=== PATIENT | female | born 1970 | race African-American/Black ===

== ENCOUNTER 2017-03-05 10:47 | Inpatient (IN) | payer BC ==
--- NOTE | ~2017-03-05 | HP ---
History And Physical [place] [id number] [facility] [place]. [address] NAME: TRACY CARPENTER : 72 STATUS : ADM IN [facility]#: [id number] AGE: 46 ADM/REG DATE : 03/05/17 MR#: [id number] REPORT SERV DATE: 03/05/17 DICTATED BY: MC NEAL DATE: 03/05/17 REPORT STATUS : Draft TRANSCRIBED BY: KEIRA DATE: 03/05/17 DATE OF ADMISSION: 03/05/2017 REASON FOR ADMISSION: Acute stroke. CHIEF COMPLAINT: "Numbness on the right side of my body." HISTORY OF PRESENT ILLNESS: Mrs. Carpenter is a 46-year-old female with a past medical history of underlying hypertension, history of a previous stroke, obesity, and diabetes. She woke up this morning and noted to have a very bad headache. She has had headaches in the past. However, at this moment in time, her blood pressure was greater than 200. The patient states that she has been fighting hypertension for many years. She has been on medications such as Tekturna. However, the patient states that she has recently been changed to losartan and also amlodipine. The patient states she has never seen a networking specialist or had a secondary workup. She does not exercise, but states that she does not take much salt intake. She had an acute onset of facial burning on the right side with the right arm numbness and her right leg lateral side had numbness and tingling with a burning sensation. She presented herself to the emergency room and was diagnosed with acute stroke. She was given tPA this morning at around 10:15 in the morning. The patient has had symptoms which are now resolving. Otherwise, no further complaints. PAST MEDICAL HISTORY: Hypertension, diabetes, obesity, history of previous stroke, and migraines. MEDICATIONS: Home medications include Norvasc 5 mg daily, Lasix 20 mg daily, Neurontin 600 mg twice daily, hydrochlorothiazide 25 mg once daily, and Cozaar 50 mg at bedtime. ALLERGIES: NO KNOWN DRUG ALLERGIES. SOCIAL HISTORY: The patient currently works in a daycare center. No smoking, alcohol, or illicit drug use according to the patient. FAMILY HISTORY: Father's family has hypertension. Nobody has a family history of kidney disease. REVIEW OF SYSTEMS: All pertinent review of systems were reviewed and are otherwise negative. PHYSICAL EXAMINATION: VITAL SIGNS: Currently afebrile, heart rate 70, respiratory rate 18, blood pressure currently around 140s to 160s systolic, and oxygen saturation 98% on room air. GENERAL: The patient is alert and oriented, in no acute distress. HEENT: Neck is supple, no lymphadenopathy. No carotid bruits. PULMONARY: Lungs are clear to auscultation bilaterally. CARDIAC: Regular rate, no murmurs, normal placed PMI. ABDOMEN: Soft, nontender, nondistended. History And Physical [address] [address] NAME: TRACY CARPENTER : 72 STATUS : ADM IN [facility]#: [id number] AGE: 46 ADM/REG DATE : 03/05/17 MR#: [id number] REPORT SERV DATE: 03/05/17 DICTATED BY: MC NEAL DATE: 03/05/17 REPORT STATUS : Draft TRANSCRIBED BY: KEIRA DATE: 03/05/17 EXTREMITIES: The patient has sensitive skin to the right leg. She is able to move all extremities. There is 4/5 muscle strength in the right upper extremity, but otherwise normal. NEUROLOGIC: Mental status is normal. Cranial nerve exam is normal. LABORATORY EXAMINATION: No leukocytosis. INR 1.0. Glucose 124. LDL 136, HDL 38, triglycerides 271. Troponin negative. TSH normal. IMAGING DATA: CT scan of the brain shows no acute intracranial abnormalities, chronic mild microvascular deep white matter ischemic changes. Chest x-ray is clear. CT scan of the neck shows no significant stenosis or occlusion. ASSESSMENT AND PLAN: 1. Mrs. Carpenter is a 46-year-old female with a past medical history noted above, who is admitted for acute stroke, status post tPA. We will continue with stroke protocol. 2. Hypertension. Currently blood pressure is around 130 systolic. We will slowly add her antihypertensive medications. The patient needs a secondary workup for which we will start. 3. Diet: We will advance diet as tolerated. Check swallow per stroke protocol. 4. Code status: The patient is currently full code. HFQ/MODL Mc Neal MD / [id number] CC: Jean Carlos Shah M.D. UNKNOWN
--- NOTE | ~2017-03-05 | DS ---
Discharge Summary [facility] [address] [place]. [address] NAME: TRACY CARPENTER : 72 STATUS : DIS IN PAT#: [id number] AGE: 46 ADM/REG DATE : 03/05/17 MR#: [id number] REPORT SERV DATE: 03/10/17 DICTATED BY: ISRAEL GONZALES DATE: 03/09/17 REPORT STATUS : Draft TRANSCRIBED BY: KEIRA DATE: 03/09/17 ADMISSION DATE: 03/05/2017 DISCHARGE DATE: 03/09/2017 PROCEDURES DONE: 1. 03/05/2017, CT of the head without contrast: No acute intracranial abnormality appreciated at this time. Findings compatible with mild chronic microvascular deep white matter ischemic changes, particularly in the frontal regions bilaterally. 2. 03/05/2017, CT of the brain without contrast: Negative CT of the brain. 3. 03/05/2017, chest x-ray: No acute cardiopulmonary disease seen. 4. 03/05/2017, CTA of the neck: No significant stenosis or occlusion is seen involving the cervical portion of the carotid and vertebral arteries. Proximal right common carotid artery is not optimally evaluated due to some artifact and adjacent venous contrast. No large vessel occlusions or stenosis is appreciated involving the intracranial arterial circulation. The intracranial portions of the internal carotid arteries are not optimally evaluated at the skull base as described. However, no stenosis or occlusion is suspected. Findings compatible with minimal chronic deep white matter ischemic change involving the frontal lobes. 5. On 03/05/2016, MRI of the brain without contrast: Mild deep white matter chronic microvascular ischemic changes. No acute CVA or other acute intracranial pathology identified. 6. 03/08/2017, MRI of the head without contrast: No acute infarct, hemorrhage, or subdural fluid collections. Minimal nonspecific white matter gliosis. The findings could be related to prior head trauma or migraine headaches. CONSULT: Dr. Lance for Neurology. REASON FOR ADMISSION: Numbness on the right side of the body. HISTORY OF PRESENT ILLNESS: A 46-year-old black female with past medical history of hypertension, questionable diabetes type 2, history of CVA, obesity, migraines, presenting with numbness on the right side of the body, unknown duration. The patient was admitted. The patient initially had a right-sided numbness of her body, which was associated with elevated blood pressure with systolic greater than 200. The patient was seen in the ER due to the patient's history of CVA, the patient was then worked up and was given tPA at the time of presentation. The patient was sent in to the Medical Intensive Care Unit for observation status post tPA. The patient did well without any complications. However, the patient started having headaches, which required a repeat MRI of the head, which was all within normal limits. The patient advised to follow up with Neurology within two weeks' time. In addition, the patient advised to comply with all medications and instructions. DISPOSITION: The patient feels fine, no complaints. ACTIVITY: As tolerated. DIET: Cardiac. Discharge Summary [place] [id number] [place]. [address] NAME: TRACY CARPENTER : 72 STATUS : DIS IN PAT#: [id number] AGE: 46 ADM/REG DATE : 03/05/17 MR#: [id number] REPORT SERV DATE: 03/10/17 DICTATED BY: ISRAEL GONZALES DATE: 03/09/17 REPORT STATUS : Draft TRANSCRIBED BY: KEIRA DATE: 03/09/17 INSTRUCTIONS UPON DISCHARGE: 1. The patient is to follow up with me within one to two weeks' time. 2. The patient is to follow up with primary care physician within one to two weeks' time. MEDICATION UPON DISCHARGE: 1. Amlodipine 5 mg p.o. daily. 2. Aspirin 325 mg daily. 3. Lipitor 80 mg p.o. at bedtime. 4. Lasix 20 mg daily. 5. Gabapentin 600 mg b.i.d. 6. Hydrochlorothiazide 25 mg p.o. daily. 7. Cozaar 50 mg p.o. at bedtime. DIAGNOSES UPON DISCHARGE: 1. Right-sided numbness secondary to cerebrovascular accident, status post tPA. 2. History of cerebrovascular accident. 3. Obesity. 4. Diabetes type 2. 5. Hypertension. BRENTON/KEIRA Irsael Gonzales MD / [id number] CC: MD Kiara De Oliveira, MARY
--- NOTE | ~2017-03-05 | CN ---
Consultation Report [facility] [address] [place]. [address] NAME: TRACY CARPENTER : 72 STATUS : ADM IN PAT#: [id number] AGE: 46 ADM/REG DATE : 03/05/17 MR#: [id number] REPORT SERV DATE: 03/05/17 DICTATED BY: DATE: REPORT STATUS : Draft TRANSCRIBED BY: MODL DATE: 03/05/17 NEUROLOGY CONSULTATION DATE OF CONSULTATION: 03/05/2017 REASON FOR CONSULT: Right paresthesia, concern for possible acute stroke. HISTORY OF PRESENT ILLNESS: This is a 46-year-old female, who presented to [facility] on 03/05/2017, secondary to acute onset of paresthesia which the patient reports symptoms started at 0830 hours. On the day of evaluation, the patient was noted to have severe headache with numbness and tingling on the right side, as well as paraesthesia sensation with the symptom remains stable since onset. No significant changes were otherwise noted. The patient denies any dysarthria and denies weakness. The patient does have a history of previous stroke resulting in right hemiparesis and at baseline, does not taking any aspirin, Plavix, or blood thinner. The patient reports compliance with medication and baseline, takes hypertensive medication, as well as Neurontin. The patient denies any recent illness, fever, chills, nausea, vomiting, chest pain, shortness of breath, and denies any other complaints. PAST MEDICAL HISTORY: Significant for history of stroke, as well as hypertension. FAMILY HISTORY: Significant for cancer, as well as a heart disease. SOCIAL HISTORY: Denies tobacco, alcohol, or recreational drug usage. ALLERGIES: THE PATIENT WAS NOTED TO HAVE NO KNOWN DRUG ALLERGIES AT THE TIME OF EVALUATION. HOME MEDICATIONS: Consist of hypertensive medication. Denies aspirin, Plavix, or blood thinner usage. REVIEW OF SYSTEMS: Negative except for those mentioned in the HPI. PHYSICAL EXAMINATION: VITAL SIGNS: The patient on ER presentation was noted to have vital signs with a T-max of 98.6, heart rate of 81, respirations of 14, and blood pressure was 198/96. At the time of the tPA administration, the patient was noted to have systolic blood pressure of 160s. GENERAL: The patient is well developed, well nourished, in no acute distress. CARDIOVASCULAR: Regular rate and rhythm. No carotid bruits were otherwise auscultated. PULMONARY: Clear to auscultation bilaterally. NEUROLOGICAL: The patient was noted to be alert, oriented to person, place, year, and month. Follows simple and two-step commands. No dysarthria or aphasia was otherwise noted. Intact registration and recall. Cranial nerves II through XII: Pupils equal, round, and reactive to light. Extraocular eye movement was noted to be intact with intact blink to threat response, was noted to have paraesthesia at the time of evaluation to the right face Consultation Report [facility] [address] [place]. [address] NAME: TRACY CARPENTER : 72 STATUS : ADM IN PAT#: [id number] AGE: 46 ADM/REG DATE : 03/05/17 MR#: [id number] REPORT SERV DATE: 03/05/17 DICTATED BY: DATE: REPORT STATUS : Draft TRANSCRIBED BY: MODL DATE: 03/05/17 cranial nerve V1, V2, and V3 distribution. The patient noted to have decreased nasolabial fold on the right and midline tongue. Normal palatal movement. Normal hearing. The patient was noted to have mild weakness in the right lower extremity, as well as right upper extremity and paresthesia at the time of evaluation. Deep tendon reflex was noted to be 3+ in the left upper extremity, 2+ in the right upper extremity. The patient demonstrated 5/5 left upper extremity and lower extremity strength with the patient noted to have paresthesia in the right upper and right lower extremity at the time of evaluation. Normal finger-to- nose examination without ataxia. Gait was not evaluated secondary to acute symptoms. LABORATORY STUDIES: Demonstrated sodium 141, potassium 3.6, chloride 104, bicarb 29, BUN of 11, creatinine of 0.68, glucose of 124, calcium of 8.5. White blood cell count of 6.3, hemoglobin of 13.6, hematocrit of 40.6, and platelet count of 316. CT scan of the brain otherwise demonstrated no acute process with CT angiogram demonstrated no clear possible thrombus. IMPRESSION: 1. Headache. 2. Right-sided paresthesia. Time of onset was 0830 hours with NIH stroke scale of 3. TPA was given. We will start the patient on Lipitor 80 mg p.o. at bedtime. We will admit to ICU for monitoring as per protocol. We will perform stroke workup, as well as provide the patient with Depakote 125 mg IV b.i.d. for headache. RECOMMENDATIONS: 1. Admit to ICU. 2. MRI of the brain. 3. Echocardiogram with bubble study. 4. Lipitor 80 mg p.o. at bedtime. 5. PT/OT. 6. Depakote 125 mg IV b.i.d. for headache. 7. Fasting lipid panel and hemoglobin A1c. [facility]/MODL Jose Lance MD / [id number] CC: Jean Carlos Shah M.D.
[2017-03-05 10:46] LABS: BASOPHILS 0.2 %; BASOPHILS ABSOLUTE 0.01 10/3/uL (0.0-0.16); EOSINOPHILS 0.6 %; EOSINOPHILS ABSOLUTE 0.04 10/3/uL (0.0-0.53); HEMATOCRIT 40.6 % (36.0-48.0); HEMOGLOBIN 13.6 g/dL (12.0-16.0); IMMATURE GRANULOCYTES 0.5 %; IMMATURE GRANULOCYTES ABSOLUTE 0.03 10/3/uL (0.0-0.11); LYMPHOCYTES 45.8 %; LYMPHOCYTES ABSOLUTE 2.86 10/3/uL (0.67-4.30); MANUAL DIFF NO %; MEAN CORPUS HGB CONC 33.5 g/dL (32.0-36.0); MEAN CORPUSCULAR HEMOGLOB 28.6 pg (26.0-34.0); MEAN CORPUSCULAR VOLUME 85.3 fL (80-100); MEAN PLATELET VOLUME 9.3 fL (9.2-13.0); MONOCYTES 6.9 %; MONOCYTES ABSOLUTE 0.43 10/3/uL (0.21-1.20); NEUTROPHILS ABSOLUTE 2.88 10/3/uL (2.02-8.40); PLATELET COUNT 316 10/3/uL (150-400); RBC DISTRIBUTION WIDTH 14.2 % (12.0-16.0); RED CELL COUNT 4.76 10/6/uL (4.0-5.6); WHITE BLOOD CELLS 6.3 10/3/uL (4.5-10.5)
[~2017-03-05 10:47] MED LIST: FARXIGA5 PO; LORT7 PO; NORCO1 TA2 PO; OSENI; TEKTURNA HCT1 TA2 PO; VALTREX1 GM PO; ZESTORETIC1 TAB PO
[2017-03-05 10:53] LABS: PARTIAL THROMBO TIME 28.2 SEC (22.5-37.2); PROTIME (NOT ORD) 13.4 SEC (12.0-14.5)
[2017-03-05 11:02] LABS: A/G RATIO 0.9 (0.7-1.9); ALBUMIN 3.7 G/DL (3.5-5.0); ALKALINE PHOSPHATASE 117 U/L (45-117); BUN (BLOOD UREA NITROGEN) 11 MG/DL (6-23); CALCIUM, SERUM 8.5 MG/DL (8.5-10.4); CHLORIDE, SERUM 104 MMOL/L (96-112); CO2 (CARBON DIOXIDE) 29 MMOL/L (24-34); CREATININE 0.68 MG/DL (0.55-1.02); GFR AFRICAN AMERICAN 122 ML/MIN (>=60); GFR NON AFRICAN AMERICAN 106 ML/MIN (>=60); GLUCOSE, SERUM 124 MG/DL (60-99); POTASSIUM, SERUM 3.6 MMOL/L (3.5-5.3); SGOT(AST) 15 U/L (5-40); SGPT(ALT) 25 U/L (5-65); SODIUM, SERUM 141 MMOL/L (135-148); TOTAL BILIRUBIN 0.3 MG/DL (0-1.2); TOTAL PROTEIN 7.7 G/DL (6.0-8.5); TROPONIN I <0.02 NG/ML (<0.05)
[2017-03-05] MEDS ORDERED: COZ50 PO (11:52)
[2017-03-05] MEDS ORDERED: NEUR600 PO (11:52)
[2017-03-05] MEDS ORDERED: L20 PO (11:53)
[2017-03-05] MEDS ORDERED: HYDROCHLOROT25 MG PO (11:53)
[2017-03-05] MEDS ORDERED: NORV5 PO (11:53)
[2017-03-05 14:21] LABS: HEMATOCRIT 41.3 % (36.0-48.0); HEMOGLOBIN 13.8 g/dL (12.0-16.0)
[2017-03-05 15:02] LABS: HDL CHOLESTEROL 38 MG/DL (> 49); TRIGLYCERIDE 271 MG/DL (< 150)
[2017-03-05 15:06] LABS: CHOLESTEROL 228 MG/DL (< 200); FOLATE 8.9 NG/ML (>5.2); LDL CHOLESTEROL 136 MG/DL (< 130); NON-HDL CHOLESTEROL 190 MG/DL (< 160)
[2017-03-05 19:48] LABS: CPK (IF ELEVATED MB BANDS) 108 U/L (0-200); TROPONIN I <0.02 NG/ML (<0.05)
[2017-03-06 02:33] LABS: BASOPHILS 0.3 %; BASOPHILS ABSOLUTE 0.02 10/3/uL (0.0-0.16); EOSINOPHILS 1.2 %; EOSINOPHILS ABSOLUTE 0.09 10/3/uL (0.0-0.53); HEMATOCRIT 37.8 % (36.0-48.0); HEMOGLOBIN 12.6 g/dL (12.0-16.0); IMMATURE GRANULOCYTES 0.4 %; IMMATURE GRANULOCYTES ABSOLUTE 0.03 10/3/uL (0.0-0.11); LYMPHOCYTES 41.8 %; LYMPHOCYTES ABSOLUTE 3.12 10/3/uL (0.67-4.30); MEAN CORPUS HGB CONC 33.3 g/dL (32.0-36.0); MEAN CORPUSCULAR HEMOGLOB 28.4 pg (26.0-34.0); MEAN CORPUSCULAR VOLUME 85.1 fL (80-100); MEAN PLATELET VOLUME 9.2 fL (9.2-13.0); MONOCYTES 7.9 %; MONOCYTES ABSOLUTE 0.59 10/3/uL (0.21-1.20); NEUTROPHILS 48.4 %; NEUTROPHILS ABSOLUTE 3.61 10/3/uL (2.02-8.40); PLATELET COUNT 332 10/3/uL (150-400); RBC DISTRIBUTION WIDTH 14.3 % (12.0-16.0); RED CELL COUNT 4.44 10/6/uL (4.0-5.6); WHITE BLOOD CELLS 7.5 10/3/uL (4.5-10.5)
[2017-03-06 02:39] LABS: MANUAL DIFF NO %
[2017-03-06 02:42] LABS: BUN (BLOOD UREA NITROGEN) 11 MG/DL (6-23); C-REACTIVE PROTEIN 17.6 MG/L (<8.0); CALCIUM, SERUM 8.6 MG/DL (8.5-10.4); CHLORIDE, SERUM 107 MMOL/L (96-112); CO2 (CARBON DIOXIDE) 27 MMOL/L (24-34); CPK (IF ELEVATED MB BANDS) 94 U/L (0-200); CREATININE 0.67 MG/DL (0.55-1.02); GFR AFRICAN AMERICAN 123 ML/MIN (>=60); GFR NON AFRICAN AMERICAN 106 ML/MIN (>=60); GLUCOSE, SERUM 106 MG/DL (60-99); POTASSIUM, SERUM 3.7 MMOL/L (3.5-5.3); SODIUM, SERUM 142 MMOL/L (135-148); TROPONIN I <0.02 NG/ML (<0.05)
[2017-03-06 03:30] LABS: SED RATE 11 MM/HR (0-20)
[2017-03-06 10:39] LABS: ASCORBIC ACID (UR NOT ORDER) NEG (NEG); BILIRUBIN, URINE NEGATIVE (NEG); KETONE, URINE NEGATIVE (NEG); LEUKOCYTE ESTERASE(NOT OR NEG (NEG); WBC (NOT ORDERED) (RFLEX) < 1 (0-5)
[2017-03-06 15:00] LABS: BENZODIAZEPINES (NOT ORD) NEG (NEG); COCAINE (NOT ORDERED) NEG (NEG); PHENCYCLIDINE(PCP) NEG (NEG)
[2017-03-06 15:01] LABS: AMPHETAMINES (NOT ORD) NEG (NEG); BARBITURATES (NOT ORDERED NEG (NEG); CANNABINOIDS (THC) NEG (NEG); OPIATES NEG (NEG); TRICYCLICS NEG (NEG)
[2017-03-06 20:44] LABS: T.V. 24HR UR (NOT ORD) 1575 ML (600-1600)
[2017-03-06 21:01] LABS: CREAT 24HR UR (NOT ORDER) 1.21 G/T VOL (0.60-1.80); CREATININE, UR 76.8 MG/DL; T.P. URINE (NOT ORDER RAN 5.2 MG/DL; T.P.24HR UR (NOT ORDER) 82 MG/24HR (40-150); URIC A 24HR UR (NOT ORDER 0.42 GM/24HR (0.3-1.0); URIC ACID URINE 27 MG/DL
[2017-03-07 11:02] LABS: CALC 24HR UR (NOT ORDER) 0.18 GM/24HR (0.042-0.353)
[2017-03-08 05:31] LABS: BASOPHILS 0.2 %; BASOPHILS ABSOLUTE 0.01 10/3/uL (0.0-0.16); EOSINOPHILS 0.9 %; EOSINOPHILS ABSOLUTE 0.06 10/3/uL (0.0-0.53); HEMOGLOBIN 12.5 g/dL (12.0-16.0); IMMATURE GRANULOCYTES 0.5 %; IMMATURE GRANULOCYTES ABSOLUTE 0.03 10/3/uL (0.0-0.11); LYMPHOCYTES 49.5 %; MEAN CORPUS HGB CONC 32.9 g/dL (32.0-36.0); MEAN CORPUSCULAR HEMOGLOB 28.1 pg (26.0-34.0); MEAN CORPUSCULAR VOLUME 85.4 fL (80-100); MEAN PLATELET VOLUME 9.3 fL (9.2-13.0); NEUTROPHILS 39.9 %; NEUTROPHILS ABSOLUTE 2.66 10/3/uL (2.02-8.40); PLATELET COUNT 328 10/3/uL (150-400); RBC DISTRIBUTION WIDTH 14.1 % (12.0-16.0); RED CELL COUNT 4.45 10/6/uL (4.0-5.6); WHITE BLOOD CELLS 6.7 10/3/uL (4.5-10.5)
[2017-03-08 05:42] LABS: MANUAL DIFF NO %
[2017-03-08 05:53] LABS: A/G RATIO 0.9 (0.7-1.9); ALBUMIN 3.2 G/DL (3.5-5.0); CALCIUM, SERUM 8.5 MG/DL (8.5-10.4); CHLORIDE, SERUM 104 MMOL/L (96-112); CO2 (CARBON DIOXIDE) 26 MMOL/L (24-34); CREATININE 0.66 MG/DL (0.55-1.02); GFR AFRICAN AMERICAN 124 ML/MIN (>=60); GFR NON AFRICAN AMERICAN 107 ML/MIN (>=60); GLOBULIN 3.4 G/DL (2.5-4.1); GLUCOSE, SERUM 110 MG/DL (60-99); INTERNATIONAL NORMAL RATI 1.1 UNITS (-); PHOSPHORUS, SERUM 4.1 MG/DL (2.5-4.5); POTASSIUM, SERUM 3.4 MMOL/L (3.5-5.3); PROTIME (NOT ORD) 14.5 SEC (12.0-14.5); SGOT(AST) 19 U/L (5-40); SGPT(ALT) 18 U/L (5-65); SODIUM, SERUM 140 MMOL/L (135-148); TOTAL BILIRUBIN 0.6 MG/DL (0-1.2); TOTAL PROTEIN 6.6 G/DL (6.0-8.5)
[2017-03-08 05:58] LABS: ALKALINE PHOSPHATASE 94 U/L (45-117); BUN (BLOOD UREA NITROGEN) 19 MG/DL (6-23)
[2017-03-09 07:00] LABS: BASOPHILS 0.2 %; BASOPHILS ABSOLUTE 0.01 10/3/uL (0.0-0.16); EOSINOPHILS 0.8 %; EOSINOPHILS ABSOLUTE 0.05 10/3/uL (0.0-0.53); HEMATOCRIT 39.2 % (36.0-48.0); HEMOGLOBIN 12.9 g/dL (12.0-16.0); IMMATURE GRANULOCYTES 0.2 %; IMMATURE GRANULOCYTES ABSOLUTE 0.01 10/3/uL (0.0-0.11); LYMPHOCYTES 43.6 %; LYMPHOCYTES ABSOLUTE 2.66 10/3/uL (0.67-4.30); MEAN CORPUS HGB CONC 32.9 g/dL (32.0-36.0); MEAN CORPUSCULAR HEMOGLOB 28.2 pg (26.0-34.0); MEAN CORPUSCULAR VOLUME 85.8 fL (80-100); MEAN PLATELET VOLUME 9.3 fL (9.2-13.0); MONOCYTES 9.2 %; MONOCYTES ABSOLUTE 0.56 10/3/uL (0.21-1.20); NEUTROPHILS ABSOLUTE 2.81 10/3/uL (2.02-8.40); PLATELET COUNT 332 10/3/uL (150-400); RBC DISTRIBUTION WIDTH 14.1 % (12.0-16.0); RED CELL COUNT 4.57 10/6/uL (4.0-5.6); WHITE BLOOD CELLS 6.1 10/3/uL (4.5-10.5)
[2017-03-09 07:01] LABS: MANUAL DIFF NO %
[2017-03-09 07:35] LABS: ALBUMIN 3.4 G/DL (3.5-5.0); BUN (BLOOD UREA NITROGEN) 16 MG/DL (6-23); CHLORIDE, SERUM 106 MMOL/L (96-112); CO2 (CARBON DIOXIDE) 25 MMOL/L (24-34); CREATININE 0.77 MG/DL (0.55-1.02); GFR AFRICAN AMERICAN 108 ML/MIN (>=60); GFR NON AFRICAN AMERICAN 93 ML/MIN (>=60); GLUCOSE, SERUM 116 MG/DL (60-99); PHOSPHORUS, SERUM 3.5 MG/DL (2.5-4.5); POTASSIUM, SERUM 3.7 MMOL/L (3.5-5.3); SODIUM, SERUM 141 MMOL/L (135-148)
[2017-03-09 07:36] LABS: CALCIUM, SERUM 8.8 MG/DL (8.5-10.4)
[2017-03-09 08:21] LABS: SED RATE 14 MM/HR (0-20)
[2017-03-09] MEDS ORDERED: LIPITOR80 MG PO (15:17)
[2017-03-09] MEDS ORDERED: ASA5GR PO (15:17)
[2017-03-26 14:29] LABS: CREATININE 0.7 MG/DL (0.55-1.02)
== END 2017-03-09 17:46 | disposition home or self-care (01) | DRG 62 ==
LOC: ER 10:47 → MIC 11:52 → 2SO 03-06 13:19
PROVIDERS: Emergency Medicine; Hospitalist; Internal Medicine Critical Care Medicine; Nurse Practitioner Family; Psychiatry & Neurology Neurology
DX: I63.9 Cerebral infarction, unspecified (principal); G81.94 Hemiplegia, unspecified affecting left nondominant side; I10 Essential (primary) hypertension; E66.9 Obesity, unspecified; E11.9 Type 2 diabetes mellitus without complications; Z80.9 Family history of malignant neoplasm, unspecified; Z82.49 Family history of ischemic heart disease and other diseases of the circulatory system; Z79.899 Other long term (current) drug therapy; Z86.73 Personal history of transient ischemic attack (TIA), and cerebral infarction without residual deficits
CPT/HCPCS: 36415; 70450; 70496; 70498; 70551; 71010; 80048; 80053; 80061; 80069; 80305; 81001; 81003; 81050; 82140; 82340; 82550; 82570; 82607; 82746; 82962; 83036; 83735; 84100; 84156; 84443; 84484; 84560; 85014; 85018; 85025; 85610; 85652; 85730; 86140; 86850; 86900; 86901; 87641; 93005; 93306; 96365; 97161-GP; 97165-GO; 99285; A9270-GY; G8978-CI-GP; G8979-CI-GP; G8980-CI-GP; G8987-CH-GO; G8988-CH-GO; G8989-CH-GO; J2930; J2997; Q9967

== ENCOUNTER 2017-05-05 13:01 | Inpatient (IN) | payer BC ==
--- NOTE | ~2017-05-05 | HP ---
History And Physical [place] [address] [facility] [place]. [address] NAME: TRACY CARPENTER : 72 STATUS : ADM IN [facility]#: [id number] AGE: 47 ADM/REG DATE : 05/05/17 MR#: [id number] REPORT SERV DATE: 05/06/17 DICTATED BY: CHAS RIOS DATE: 05/05/17 REPORT STATUS : Draft TRANSCRIBED BY: MODSiobhan DATE: 05/05/17 DATE OF ADMISSION: 05/05/2017 REASON FOR ADMISSION: Right-sided weakness. PRIMARY CARE DOCTOR: Appears to be unclear. HISTORY OF PRESENT ILLNESS: This is a 47-year-old female, who was in the MRI unit for at least 45 minutes as of me attempting to admit this patient, cannot visualize the patient, but from what I gather the patient had come in with having a right facial tingling, right-sided numbness. MRI of the brain in 03/2017 showed no acute abnormality. The patient was crying when touched on the right side. Was seen by Neurology, who determine possible hypertensive emergency versus stroke versus psychogenic event. Recommendation for continuing aspirin, Lipitor with a repeat MRI. No tPA given. Sensory symptoms. No PT/OT due to lack of motor deficit. We will have to follow up on the patient's physical exam and additional review of systems. Apparently, she was sitting in cheondoism when she realized right side of her face felt different than her left, had tingling on her head and on the left arm, felt like her right side is burning. While she was in cheondoism prior felt normal. The patient received tPA back in March with a discharge diagnosis of right-sided numbness secondary to possible history of stroke, obesity, hypertension. The patient at that time had a CT on 03/05/2017 that did not show any acute abnormality, only chronic microvascular deep white matter changes particularly in the frontal regions. She had a MRI in the three days thereafter on 03/08/2017 showed no acute infarct, hemorrhage, subdural fluid collection, minimal nonspecific white matter gliosis. PAST MEDICAL HISTORY/PAST SURGICAL HISTORY: See above including hysterectomy 2009, urine polyps removed, tubal ligation. FAMILY HISTORY: Father had [place] in late 40s or early 50s. Mother esophageal cancer. SOCIAL: Single. 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 Works at daycare. Denies alcohol, tobacco, or illicit drug use per the records. REVIEW OF SYSTEMS: A 10-point review of systems done, see HPI. Otherwise, negative. ALLERGIES: APPARENTLY ARE NO KNOWN DRUG ALLERGIES. OBJECTIVE: VITAL SIGNS: She has a blood pressure of 205/93, 97.9 temp, 73 pulse, 20 respirations, 97% on room air. GENERAL: Want to defer physical exam until I actually lay eyes on this patient. It may be written down on documentation. History And Physical [address] [address] NAME: TRACY CARPENTER : 72 STATUS : ADM IN PAT#: [id number] AGE: 47 ADM/REG DATE : 05/05/17 MR#: [id number] REPORT SERV DATE: 05/06/17 DICTATED BY: CHAS RIOS DATE: 05/05/17 REPORT STATUS : Draft TRANSCRIBED BY: KEIRA DATE: 05/05/17 CT of the brain here did not show any acute intracranial pathology. I am going to say an EKG, normal sinus rhythm. No ischemic ST-T changes. ASSESSMENT AND PLAN: 1. Right facial numbness to the right side as well with crying when touched on the right side. Stroke versus hypertensive emergency versus psychogenic etiology. If she has a headache, consider possible complicated migraine. 2. Hypertension, accelerated. 3. Diabetes, consider possible neuropathy. 4. Neuropathy. 5. History migraines, consider possible prophylactic Topamax. PLAN: We will go ahead and continue to admit this patient. Neurology has already seen the patient. We will need to re-evaluate after an MRI and I will likely holcomb a physical exam on a written note. The patient will receive full-dose aspirin, full-dose Lipitor. If initially develops any stroke, she may need addition of Plavix and a repeat stroke workup including echo and carotids etc. We will defer to Neurology and their expertise. If indeed this is a complicated migraine, many need Topamax for preventive measures, in the interim place the patient on gabapentin for neuropathic like pain from what I can gather. See rest of my orders including permissive hypertension. All questions were answered. It took well over 60 minutes to do. Reference [employer] and [employer]. WST/MODL Chas Rios DO / [id number] CC: Jean Carlos Colon M.D.
--- NOTE | ~2017-05-05 | CN ---
Consultation Report [facility] [address] [place]. [address] NAME: TRACY CARPENTER : 72 STATUS : ADM IN PAT#: [id number] AGE: 47 ADM/REG DATE : 05/05/17 MR#: [id number] REPORT SERV DATE: 05/05/17 DICTATED BY: DATE: REPORT STATUS : Draft TRANSCRIBED BY: MODL DATE: 05/05/17 NEUROLOGY CONSULTATION DATE OF CONSULTATION: 05/05/2017 REASON FOR CONSULT: Right-sided numbness and tingling. HISTORY OF PRESENT ILLNESS: This is a 47-year-old female previously received tPA on 03/05/2017 secondary to right-sided paresthesia. The patient was subsequently discharged. MRI at that time was negative for acute event. The patient presented to [facility] today secondary to onset of right-sided numbness, mostly involving face with the patient being emotional on evaluation. The patient otherwise denies any dysarthria, dysphagia, language difficulties, and denies any focal weakness. The patient does not complain of any numbness on the right side, but noted to have decreased sensation on the right. The patient is taking aspirin as well as Neurontin and blood pressure medication. No other changes in medication were noted. The patient denies any recent illness, fever, chills, nausea, vomiting, chest pain, or shortness of breath. Denies recent stress. PAST MEDICAL HISTORY: Significant for history of stroke as well as hypertension. FAMILY HISTORY: Significant for cancer as well as heart disease. SOCIAL HISTORY: Denies tobacco, alcohol, or recreational drug usage. ALLERGIES: THE PATIENT WAS NOTED TO HAVE NO KNOWN DRUG ALLERGIES. MEDICATIONS: The patient's home medications consist of hypertensive medication as well as aspirin and Lipitor. REVIEW OF SYSTEMS: Negative except for those mentioned in the HPI. PHYSICAL EXAMINATION: VITAL SIGNS: At the time of evaluation, the patient was noted to have vital signs with T- max of 97.9, heart rate of 73, respirations of 22, and blood pressure of 205/93. GENERAL: The patient is well developed, well nourished, in no acute distress. CARDIOVASCULAR: Regular rate and rhythm. No carotid bruits are otherwise auscultated. PULMONARY: Clear to auscultation bilaterally. NEUROLOGIC: Generally, the patient is alert and oriented to person, place, year, and month and follows simple and two-step commands. No dysarthria, no aphasia. At the time of my evaluation, the patient, however, started crying when touched in the right upper extremity and reports abnormal painful sensation with touch. The patient's cranial nerves II through XII, pupils are equal, round, and reactive to light. Horizontal and vertical eye movement was noted to be intact with intact peripheral vision. Symmetrical facial expression. Consultation Report [place] [id number] [place]. [address] NAME: TRACY CARPENTER : 72 STATUS : ADM IN PAT#: [id number] AGE: 47 ADM/REG DATE : 05/05/17 MR#: [id number] REPORT SERV DATE: 05/05/17 DICTATED BY: DATE: REPORT STATUS : Draft TRANSCRIBED BY: MODL DATE: 05/05/17 Midline tongue. Normal palatal movement. Normal hearing noted. The patient was noted to have normal symmetric sensation in cranial nerve V1 distribution bilaterally, but otherwise, reports decreased sensation in cranial nerve V2 as well as V3 distribution on the right. Reports intact sensation in cranial nerve V2 and V3 distribution on the left. The patient reports a decrease in altered sensation in the right upper and right lower extremity. At the time of my evaluation, 5/5 bilateral upper and lower extremity strength. Normal muscle, bulk, and tone. Deep tendon reflex was 1+ throughout. Downgoing toe on bilateral plantar reflexes. Gait was not evaluated secondary to the patient's acute symptom. Again, normal [id number] examination without ataxia on evaluation. LABORATORY STUDIES: The patient's laboratory study is pending and CT scan of the brain is pending. Echocardiogram from 03/05/2017 was reviewed. No acute thrombus, apical thrombus, or significant abnormality was noted. MRI of the brain from 03/08/2017 was also reviewed, no acute event was seen at that time. IMPRESSION: 1. Right-sided numbness. The patient does have recent tPA for the same symptoms with MRI of the brain on the hospital admission on 03/08/2017 and echocardiogram on 03/05/2017 reviewed and no acute process was found at that time on MRI of the brain. The patient was crying when touched on the right side. In addition, the patient was also noted to have elevated blood pressure on ER evaluation as well as during previous hospital admission. Question of stroke versus hypertensive emergency versus psychogenic events. We will continue aspirin and Lipitor. We will obtain MRI of the brain without contrast. We will check fasting lipid panel as well as hemoglobin A1c. Alteplase tPA was not offered secondary to fewer sensory symptoms. NIH stroke scale was noted to be 1. No PT/OT consultation secondary to lack of motor deficit. RECOMMENDATION: 1. Observation. 2. Aspirin and Lipitor. 3. Blood pressure control as per Hospitalist. 4. No echocardiogram secondary to recent echo on 03/05/2017. 5. MRI of the brain without contrast. 6. Fasting lipid panel and hemoglobin A1c with morning labs. [facility]/MODL Jose Lance MD / [id number] CC: Consultation Report [address] [address] NAME: TRACY CARPENTER : 72 STATUS : ADM IN [facility]#: [id number] AGE: 47 ADM/REG DATE : 05/05/17 MR#: [id number] REPORT SERV DATE: 05/05/17 DICTATED BY: DATE: REPORT STATUS : Draft TRANSCRIBED BY: KEIRA DATE: 05/05/17 Jean Carlos Colon M.D.
--- NOTE | ~2017-05-05 | HP ---
History And Physical [id number] [facility] [place]. [address] NAME: TRACY CARPENTER : 72 STATUS : ADM IN PAT#: [id number] AGE: 47 ADM/REG DATE : 05/05/17 MR#: [id number] REPORT SERV DATE: 05/05/17 DICTATED BY: CHAS RIOS DATE: 05/05/17 REPORT STATUS : Draft TRANSCRIBED BY: KEIRA DATE: 05/05/17 DATE OF ADMISSION: 05/05/2017 ADDENDUM: I got to see the patient after the MRI finally. OBJECTIVE: GENERAL: No acute distress. HEENT: PERRLA. No scleral icterus. CARDIOVASCULAR: Regular rate and rhythm. No murmur. RESPIRATORY: Decreased breath sounds bibasilarly. ABDOMEN: Nontender and nondistended. Positive bowel sounds. Obese. EXTREMITIES: No edema. No ecchymosis. NEUROLOGIC: She has exquisite pain to even light touch of the right arm. Right facial numbness compared to the left. Sensation is normal. She seemed to have 4/5 power in her lower extremities and on her bilateral right upper and left upper extremity. PSYCHIATRIC: Significantly anxious. REVIEW OF SYSTEMS: The patient denies any significant stress, but the family indicates that she may have significant stress. ASSESSMENT AND PLAN: Addendum to my Assessment and Plan: If indeed her MRI is negative and the patient states she did not have a headache and if there was a psychogenic etiology, consider possible psychiatry versus possible multiple sclerosis workup. All questions were answered. It took well over 60 minutes to do. JERAMY/KEIRA Chas Rios DO / [id number]
--- NOTE | ~2017-05-05 | DS ---
Discharge Summary [facility] [address] [place]. [address] NAME: TRACY CARPENTER : 72 STATUS : DIS IN PAT#: [id number] AGE: 47 ADM/REG DATE : 05/05/17 MR#: [id number] REPORT SERV DATE: 05/08/17 DICTATED BY: ALIREZA SWEET DATE: 05/07/17 REPORT STATUS : Draft TRANSCRIBED BY: MODSiobhan DATE: 05/07/17 ADMISSION DATE: 05/05/2017 DISCHARGE DATE: 05/07/2017 REASON FOR ADMISSION: This is a 47-year-old, -Citizen Of [place] female, who came in with a chief complaint of right-sided weakness. She was having right facial tingling and right- sided numbness as well as headache. DISCHARGE DIAGNOSES: 1. Complicated migraine. 2. Vitamin D deficiency. 3. Hypertension. 4. Pre-diabetes. HOSPITAL COURSE: 1. Complicated migraine. The patient had come in with right facial numbness and tingling as well as right sided extremity numbness. The patient would have brain imaging performed, CT of the brain which had been negative. The MRI of the brain, which would show no acute infarct or hemorrhage, then would have followup MRI with contrast of the brain and cervical spine which would show the presence of some increased Virchow-Bennett spaces over the medial convexity, sometimes associated with increased risk for small vessel disease. 2. MRI of cervical spine which showed small borderline lymph nodes, more on the right than the left, mild straightening of the normal cervical lordosis. Symptoms were also present with a headache and ultimately would be ruled as part of complex migraine. She was started on Topamax and had resolution of her headache. DISCHARGE CONDITION: Stable. DISCHARGE MEDICATIONS: 1. Losartan 50 mg p.o. at bedtime. 2. Neurontin 600 mg p.o. b.i.d. 3. Lasix 20 mg p.o. daily. 4. Amlodipine 5 mg p.o. daily. 5. HCTZ 25 mg p.o. daily. 6. Aspirin 325 mg p.o. daily. 7. Atorvastatin 80 mg p.o. at bedtime. 8. Ultram 50 mg p.o. q.8 hours p.r.n. 9. Vitamin D 74787 units. 10.Topamax 50 mg p.o. at bedtime. DISCHARGE PLANS: Discharge home. Follow up with Neurology in four weeks and follow up with primary care, Dr. Kiara Torres in one to two weeks. DICTATED BY: Alireza Sweet APN Discharge Summary [place] [address] [place]. [address] NAME: TRACY CARPENTER : 72 STATUS : DIS IN PAT#: [id number] AGE: 47 ADM/REG DATE : 05/05/17 MR#: [id number] REPORT SERV DATE: 05/08/17 DICTATED BY: ALIREZA SWEET DATE: 05/07/17 REPORT STATUS : Draft TRANSCRIBED BY: KEIRA DATE: 05/07/17 LATRELL/KEIRA Alireza Sweet APN / [id number] CC: Alex Spear M.D. MARY Chaudhary, DNP, [facility]-
[~2017-05-05 13:01] MED LIST changes: +ASA5GR PO; +COZ50 PO; +HYDROCHLOROT25 MG PO; +L20 PO; +LIPITOR80 MG PO; +NEUR600 PO; +NORV5 PO
[2017-05-05 13:50] LABS: BASOPHILS 0.4 %; BASOPHILS ABSOLUTE 0.03 10/3/uL (0.0-0.16); EOSINOPHILS 0.5 %; EOSINOPHILS ABSOLUTE 0.04 10/3/uL (0.0-0.53); HEMATOCRIT 39.4 % (36.0-48.0); IMMATURE GRANULOCYTES 0.4 %; IMMATURE GRANULOCYTES ABSOLUTE 0.03 10/3/uL (0.0-0.11); LYMPHOCYTES 47.3 %; LYMPHOCYTES ABSOLUTE 3.47 10/3/uL (0.67-4.30); MANUAL DIFF NO %; MEAN CORPUSCULAR HEMOGLOB 28.2 pg (26.0-34.0); MEAN CORPUSCULAR VOLUME 85.5 fL (80-100); MEAN PLATELET VOLUME 9.9 fL (9.2-13.0); MONOCYTES 6.7 %; MONOCYTES ABSOLUTE 0.49 10/3/uL (0.21-1.20); NEUTROPHILS 44.7 %; NEUTROPHILS ABSOLUTE 3.27 10/3/uL (2.02-8.40); PLATELET COUNT 332 10/3/uL (150-400); RBC DISTRIBUTION WIDTH 14.6 % (12.0-16.0); RED CELL COUNT 4.61 10/6/uL (4.0-5.6); WHITE BLOOD CELLS 7.3 10/3/uL (4.5-10.5)
[2017-05-05 13:57] LABS: PARTIAL THROMBO TIME 28.3 SEC (22.5-37.2); PROTIME (NOT ORD) 13.2 SEC (12.0-14.5)
[2017-05-05 14:06] LABS: ALBUMIN 3.8 G/DL (3.5-5.0); CALCIUM, SERUM 8.7 MG/DL (8.5-10.4); CHLORIDE, SERUM 108 MMOL/L (96-112); CO2 (CARBON DIOXIDE) 28 MMOL/L (24-34); CREATININE 0.66 MG/DL (0.55-1.02); GFR AFRICAN AMERICAN 123 ML/MIN (>=60); GFR NON AFRICAN AMERICAN 106 ML/MIN (>=60); GLUCOSE, SERUM 96 MG/DL (60-99); POTASSIUM, SERUM 3.6 MMOL/L (3.5-5.3); SGOT(AST) 19 U/L (5-40); SGPT(ALT) 32 U/L (5-65); SODIUM, SERUM 144 MMOL/L (135-148); TOTAL BILIRUBIN 0.4 MG/DL (0-1.2); TOTAL PROTEIN 7.8 G/DL (6.0-8.5); TROPONIN I <0.02 NG/ML (<0.05)
[2017-05-05 14:07] LABS: ALKALINE PHOSPHATASE 118 U/L (45-117); BUN (BLOOD UREA NITROGEN) 11 MG/DL (6-23)
[2017-05-05 14:33] LABS: CREATININE 0.5 MG/DL (0.55-1.02)
[2017-05-05 17:27] LABS: PHOSPHORUS, SERUM 2.6 MG/DL (2.5-4.5)
[2017-05-05 19:25] LABS: B NATRIURETIC PEPTIDE (BNP) 108.6 PG/ML (< 100.0)
[2017-05-06 05:10] LABS: BASOPHILS 0.5 %; BASOPHILS ABSOLUTE 0.03 10/3/uL (0.0-0.16); EOSINOPHILS 1.1 %; EOSINOPHILS ABSOLUTE 0.07 10/3/uL (0.0-0.53); HEMATOCRIT 37.7 % (36.0-48.0); HEMOGLOBIN 12.1 g/dL (12.0-16.0); IMMATURE GRANULOCYTES 0.5 %; IMMATURE GRANULOCYTES ABSOLUTE 0.03 10/3/uL (0.0-0.11); LYMPHOCYTES 58.6 %; LYMPHOCYTES ABSOLUTE 3.76 10/3/uL (0.67-4.30); MEAN CORPUS HGB CONC 32.1 g/dL (32.0-36.0); MEAN CORPUSCULAR HEMOGLOB 27.9 pg (26.0-34.0); MEAN CORPUSCULAR VOLUME 86.9 fL (80-100); MEAN PLATELET VOLUME 9.7 fL (9.2-13.0); MONOCYTES 5.9 %; MONOCYTES ABSOLUTE 0.38 10/3/uL (0.21-1.20); NEUTROPHILS 33.4 %; NEUTROPHILS ABSOLUTE 2.15 10/3/uL (2.02-8.40); PLATELET COUNT 292 10/3/uL (150-400); RBC DISTRIBUTION WIDTH 14.6 % (12.0-16.0); RED CELL COUNT 4.34 10/6/uL (4.0-5.6); WHITE BLOOD CELLS 6.4 10/3/uL (4.5-10.5)
[2017-05-06 05:11] LABS: MANUAL DIFF NO %
[2017-05-06 05:26] LABS: BUN (BLOOD UREA NITROGEN) 9 MG/DL (6-23); CALCIUM, SERUM 8.3 MG/DL (8.5-10.4); CHLORIDE, SERUM 108 MMOL/L (96-112); CO2 (CARBON DIOXIDE) 25 MMOL/L (24-34); CREATININE 0.55 MG/DL (0.55-1.02); GFR AFRICAN AMERICAN 130 ML/MIN (>=60); GFR NON AFRICAN AMERICAN 112 ML/MIN (>=60); GLUCOSE, SERUM 106 MG/DL (60-99); PHOSPHORUS, SERUM 3.2 MG/DL (2.5-4.5); POTASSIUM, SERUM 3.5 MMOL/L (3.5-5.3); SODIUM, SERUM 138 MMOL/L (135-148); TRIGLYCERIDE 320 MG/DL (< 150)
[2017-05-06 05:27] LABS: CHOL/HDL RATIO(NOT ORDER) 6.3 (0-5); CHOLESTEROL 175 MG/DL (< 200); HDL CHOLESTEROL 28 MG/DL (> 49); LDL CHOLESTEROL 83 MG/DL (< 130); NON-HDL CHOLESTEROL 147 MG/DL (< 160)
[2017-05-06 14:46] LABS: FOLATE 9.7 NG/ML (>5.2)
[2017-05-07 06:25] LABS: BASOPHILS 0 %; EOSINOPHILS 0.7 %; EOSINOPHILS ABSOLUTE 0.04 10/3/uL (0.0-0.53); HEMATOCRIT 37.8 % (36.0-48.0); HEMOGLOBIN 12.5 g/dL (12.0-16.0); IMMATURE GRANULOCYTES 0.3 %; IMMATURE GRANULOCYTES ABSOLUTE 0.02 10/3/uL (0.0-0.11); LYMPHOCYTES 51.2 %; LYMPHOCYTES ABSOLUTE 3.06 10/3/uL (0.67-4.30); MEAN CORPUS HGB CONC 33.1 g/dL (32.0-36.0); MEAN CORPUSCULAR HEMOGLOB 28.1 pg (26.0-34.0); MEAN CORPUSCULAR VOLUME 84.9 fL (80-100); MEAN PLATELET VOLUME 9.8 fL (9.2-13.0); MONOCYTES 8.2 %; MONOCYTES ABSOLUTE 0.49 10/3/uL (0.21-1.20); NEUTROPHILS 39.6 %; NEUTROPHILS ABSOLUTE 2.37 10/3/uL (2.02-8.40); PLATELET COUNT 336 10/3/uL (150-400); RBC DISTRIBUTION WIDTH 14.1 % (12.0-16.0); RED CELL COUNT 4.45 10/6/uL (4.0-5.6)
[2017-05-07 06:26] LABS: MANUAL DIFF NO %
[2017-05-07 06:36] LABS: BUN (BLOOD UREA NITROGEN) 12 MG/DL (6-23); CALCIUM, SERUM 8.8 MG/DL (8.5-10.4); CHLORIDE, SERUM 107 MMOL/L (96-112); CO2 (CARBON DIOXIDE) 26 MMOL/L (24-34); CREATININE 0.61 MG/DL (0.55-1.02); GFR AFRICAN AMERICAN 126 ML/MIN (>=60); GFR NON AFRICAN AMERICAN 109 ML/MIN (>=60); GLUCOSE, SERUM 114 MG/DL (60-99); PHOSPHORUS, SERUM 3.9 MG/DL (2.5-4.5); POTASSIUM, SERUM 3.9 MMOL/L (3.5-5.3); SODIUM, SERUM 141 MMOL/L (135-148)
[2017-05-07] MEDS ORDERED: VITD (14:52)
[2017-05-07] MEDS ORDERED: ULTRAM50 (14:53)
[2017-05-07] MEDS ORDERED: TOPAMAX25 PO (14:56)
== END 2017-05-07 16:05 | disposition home or self-care (01) | DRG 103 ==
LOC: ER 13:01 → 1SO 15:28
PROVIDERS: Emergency Medicine; Hospitalist; Internal Medicine
DX: G43.109 Migraine with aura, not intractable, without status migrainosus (principal); E11.40 Type 2 diabetes mellitus with diabetic neuropathy, unspecified; I69.351 Hemiplegia and hemiparesis following cerebral infarction affecting right dominant side; I10 Essential (primary) hypertension; E55.9 Vitamin D deficiency, unspecified; F41.9 Anxiety disorder, unspecified; Z86.73 Personal history of transient ischemic attack (TIA), and cerebral infarction without residual deficits; Z80.8 Family history of malignant neoplasm of other organs or systems; Z82.49 Family history of ischemic heart disease and other diseases of the circulatory system
CPT/HCPCS: 70450; 70551; 70552; 71010; 72156; 80048; 80053; 80061; 82140; 82306; 82607; 82746; 82962; 83036; 83735; 83880; 84100; 84443; 84484; 85025; 85610; 85730; 93005; 97161-GP; 99285; A9270-GY; A9577; J1170